=== PATIENT | male | born 1995 | race Caucasian/White ===

== ENCOUNTER 2017-01-21 17:51 | Emergency (ER) | payer BC ==
[2017-01-21] MEDS ORDERED: HYDROcodone/APAP 5-325MG 1 EACH TAB PO STA (18:16)
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
[2017-01-21 18:51] VITALS: BP 138/79; PULSE 58; RESP 16; TEMP 97.9
== END 2017-01-21 19:09 | disposition other institution (70) ==
LOC: EC 17:51
DX: T23.251A Burn of second degree of right palm, initial encounter (principal); T20.16XA Burn of first degree of forehead and cheek, initial encounter; T21.11XA Burn of first degree of chest wall, initial encounter; T20.17XA Burn of first degree of neck, initial encounter; T31.0 Burns involving less than 10% of body surface; X16.XXXA Contact with hot heating appliances, radiators and pipes, initial encounter
CPT/HCPCS: 99284